=== PATIENT | female | born 1975 | race Caucasian/White ===

== ENCOUNTER 2019-07-09 08:45 | Outpatient (CLI) | payer OTHER ==
[~2019-07-09 08:45] MED LIST: FIORICET 50-301 EACH; INTESTINEX680 M1 PO; KETO10TA2 PO; ORPHENADRINE C100 MG PO; PERCOCET 5-3251 EACH PO; REGLAN5 MG/5 ML; TORADOL60 MG PO
== END 2019-07-09 08:50 | disposition home or self-care (01) ==
LOC: LAB 08:45
DX: N95.1 Menopausal and female climacteric states (principal); R89.1 Abnormal level of hormones in specimens from other organs, systems and tissues; E03.8 Other specified hypothyroidism; D64.89 Other specified anemias; E55.9 Vitamin D deficiency, unspecified; E78.49 Other hyperlipidemia; M81.6 Localized osteoporosis [Lequesne]